=== PATIENT | male | born 1945 | race Caucasian/White ===

== ENCOUNTER 2017-12-31 00:43 | Emergency (ER) | payer MEDICARE, MEDICAID ==
[~2017-12-31] VITALS: Ht 182.9 cm; Wt 61.4 kg
[~2017-12-31 00:43] MED LIST: ATOR40TA PO; BACL10TA2 PO; CHOL2000 PO; DOCU100C41 PO; FLO0.4C PO; IPRA3AMP31 IH; MAG355OR18 PO; METO25TA6 PO; MULT-1179 PO; OMEP40CA37 PO; ONDA8TAB9 PO; PROC-8 PO; TRAM50TA2 PO; TRAZ-218 PO; TROL85CR11
[2017-12-31 00:44] VITALS: BP 112/68
[2017-12-31] MEDS ORDERED: mag hydrox/Alum hydrox/simeth 30ml oral suspension PO ONE (01:10)
[2017-12-31] MEDS ORDERED: LIDOcaine Viscous 15ml cup MM PRN (01:10)
[2017-12-31 01:20] LABS: BASOPHILS % (AUTO) 0.5 % (0-1); EOSINOPHILS # (AUTO) 0.3 X10'3 (0-0.9); EOSINOPHILS % (AUTO) 3.5 % (0-6); HEMATOCRIT 38.5 % (42.0-52.0); HEMOGLOBIN 12.5 g/dl (14.0-17.9); LYMPHOCYTES # (AUTO) 2.4 X10'3 (1.1-4.8); LYMPHOCYTES % (AUTO) 31.8 % (21-51); MEAN CORPUSCULAR HEMOGLOBIN 29.3 PG (27.0-31.0); MEAN CORPUSCULAR HGB CONC 32.4 % (33.0-36.5); MEAN CORPUSCULAR VOLUME 90.3 FL (78-98); MEAN PLATELET VOLUME 8.1 FL (7.4-10.4); MONOCYTES # (AUTO) 0.5 X10'3 (0-0.9); MONOCYTES % (AUTO) 7.3 % (2-12); NEUTROPHILS # (AUTO) 4.2 X10'3 (1.8-7.7); NEUTROPHILS % (AUTO) 56.9 % (42-75); PLATELET COUNT 199 X10'3 (140-440); RED BLOOD COUNT 4.26 X10'6 (4.70-6.10); RED CELL DISTRIBUTION WIDTH 13.9 % (11.5-14.5); WHITE BLOOD COUNT 7.4 X10'3 (4.5-11.0)
[2017-12-31 01:23] LABS: ALANINE AMINOTRANSFERASE 27 U/L (12-78); ALBUMIN 3.5 G/DL (3.4-5.0); ALKALINE PHOSPHATASE 115 IU/L (46-116); ANION GAP 6 (8-16); ASPARTATE AMINO TRANSFERASE 19 U/L (10-37); BILIRUBIN,TOTAL 0.4 MG/DL (0.1-1.0); BLOOD UREA NITROGEN 26 MG/DL (7-18); CALCIUM 9.9 MG/DL (8.5-10.1); CHLORIDE 103 MMOL/L (99-107); GLUCOSE 109 MG/DL (70-104); POTASSIUM 4.3 MMOL/L (3.5-5.1); SODIUM 139 MMOL/L (135-145); TOTAL CARBON DIOXIDE 29.8 MMOL/L (24-32); TOTAL PROTEIN 6.9 G/DL (6.4-8.2); eGFR 73 ML/MIN
[2017-12-31 01:33] LABS: PARTIAL THROMBOPLASTIN TIME 29 SECONDS (22-32); PROTHROMBIN TIME 10.5 SECONDS (9.0-12.0)
[2017-12-31] MEDS ORDERED: chlorproMAZINE 25mg tablet PO STA (02:36)
== END 2017-12-31 05:30 | disposition home or self-care (01) ==
LOC: ER 00:44
DX: K21.0 Gastro-esophageal reflux disease with esophagitis (principal); I48.91 Unspecified atrial fibrillation; I10 Essential (primary) hypertension; J44.9 Chronic obstructive pulmonary disease, unspecified; E11.9 Type 2 diabetes mellitus without complications; Z86.73 Personal history of transient ischemic attack (TIA), and cerebral infarction without residual deficits; Z79.899 Other long term (current) drug therapy
CPT/HCPCS: 36415; 71045; 80053; 84484; 85025; 85610; 85730; 93005; 99285; Q0161

== ENCOUNTER 2018-03-30 18:42 | Emergency (ER) | payer MEDICARE, MEDICAID ==
[~2018-03-30] VITALS: Ht 182.9 cm; Wt 61.0 kg
[2018-03-30 19:21] LABS: BASOPHILS % (AUTO) 0.5 % (0-1); EOSINOPHILS # (AUTO) 0.1 X10'3 (0-0.9); EOSINOPHILS % (AUTO) 2.2 % (0-6); HEMATOCRIT 35.3 % (42.0-52.0); HEMOGLOBIN 11.6 g/dl (14.0-17.9); LYMPHOCYTES # (AUTO) 1.5 X10'3 (1.1-4.8); LYMPHOCYTES % (AUTO) 25.9 % (21-51); MEAN CORPUSCULAR HEMOGLOBIN 30.1 PG (27.0-31.0); MEAN CORPUSCULAR HGB CONC 32.9 g/dL (33.0-36.5); MEAN CORPUSCULAR VOLUME 91.4 FL (78-98); MEAN PLATELET VOLUME 7.7 FL (7.4-10.4); MONOCYTES # (AUTO) 0.4 X10'3 (0-0.9); MONOCYTES % (AUTO) 7.5 % (2-12); NEUTROPHILS # (AUTO) 3.7 X10'3 (1.8-7.7); NEUTROPHILS % (AUTO) 63.9 % (42-75); PLATELET COUNT 163 X10'3 (140-440); RED BLOOD COUNT 3.86 X10'6 (4.70-6.10); RED CELL DISTRIBUTION WIDTH 15.4 % (11.5-14.5); WHITE BLOOD COUNT 5.8 X10'3 (4.5-11.0)
[2018-03-30 19:35] LABS: INR 1.1 INR; PARTIAL THROMBOPLASTIN TIME 28 SECONDS (22-32)
[2018-03-30 19:38] LABS: ALANINE AMINOTRANSFERASE 25 U/L (12-78); ALBUMIN 3.4 G/DL (3.4-5.0); ALBUMIN/GLOBULIN RATIO 1.1 (1.1-1.5); ALKALINE PHOSPHATASE 98 IU/L (46-116); ANION GAP 6 (8-16); ASPARTATE AMINO TRANSFERASE 18 U/L (10-37); BILIRUBIN,TOTAL 0.5 MG/DL (0.1-1.0); BLOOD UREA NITROGEN 24 MG/DL (7-18); BUN/CREATININE RATIO 25.8 (5.4-32.0); CHLORIDE 102 MMOL/L (99-107); CREATININE 0.93 MG/DL (0.60-1.10); GLUCOSE 90 MG/DL (70-104); POTASSIUM 4.4 MMOL/L (3.5-5.1); SODIUM 137 MMOL/L (135-145); TOTAL CARBON DIOXIDE 28.6 MMOL/L (24-32); TOTAL PROTEIN 6.4 G/DL (6.4-8.2); eGFR 79 ML/MIN
--- NOTE | 2018-03-30 19:48 | NUR ---
PT WITH STABLE VS AND HR NSR. REPORTS PAIN TO HIS UPPER "ESOPHAGUS, NON RADIATING. REPORTS HE STARTED HAVING THE PAIN LAST NIGHT AND TOOKK MOM AND MALLOX WITH NO RELIEF. PT HAS BASELINE ISSUES WITH GERD AND HX OF ESOPHAGEAL CANCER AND THOUGHT IT WAS D/T THIS. RTHE SYMPTOMS HAVE CONTINUED AND THAT IS WHY HE IS HERE. PT RESIDES AT [facility] SINCE SEPTEMBER (PT WAS EVACUATED FROM [facility] BY THE [facility] AND THEN BEGAN STAYING THERE). HE REPORTS NO RELIEF FOR MEDS GIVEN BY EMS. HE REQUESTS SOMETHING FORT THE PAIN AND WNDERS IF THE LIDOCAINE GI COCKTAIL MAY ALLEVIATE IT. PT IS POLITE AND COOPERARATIVE AND A&OX4.
[2018-03-30] MEDS ORDERED: dicyclomine 10 MG capsule PO ONE (20:15)
[2018-03-30] MEDS ORDERED: LIDOcaine Viscous 15ml cup PO ONE (20:15)
[2018-03-30] MEDS ORDERED: mag hydrox/Alum hydrox/simeth 30ml oral suspension PO ONE (20:15)
--- NOTE | 2018-03-30 20:25 | NUR ---
cristobal vs. dr. sandoval in to see pt and pt given gi cocktail.
--- NOTE | 2018-03-30 21:17 | NUR ---
clarification from dr. sandoval, he wants a 2 hr troponin, which would be now. pt reports the gi cocktail helped his pain and it is now 1 out of 10. pt with stable vs.
[2018-03-30] MEDS ORDERED: PANT-47 PO (22:22)
--- NOTE | 2018-03-30 23:00 | NUR ---
pt now dc ready. Stable vs. He reports to me now that aprox 5 min ago his "esophagus pain" returned and is a 7 out of 10. He is asking for something to help him with the pain before discharge.
[2018-03-30 23:01] VITALS: BP 153/93
[2018-03-30] MEDS ORDERED: famotidine/PF 10 mg/ml inj IV ONE (23:05)
--- NOTE | 2018-03-30 23:09 | NUR ---
dr sandoval ordering pepcid prior to dc.pt's bp 177/92
--- NOTE | 2018-03-30 23:32 | NUR ---
report called to navid richards at [facility]. pt just given pepcid. [facility] called for transport.
[2018-03-30] MEDS ORDERED: sucralfate 1gm/10ml UD suspension PO ONE (23:35)
[2018-03-30] MEDS ORDERED: fentaNYL/PF 50MCG/1 ML 2ML syringe IV ONE (23:35)
--- NOTE | 2018-03-30 23:37 | NUR ---
pt now reporteing "severe discomfort" in his epigastric area, dr. sandoval aware and ordering fentanyl and carafate.
== END 2018-03-31 00:15 | disposition home or self-care (01) ==
LOC: ER 18:42
DX: K21.9 Gastro-esophageal reflux disease without esophagitis (principal); I48.91 Unspecified atrial fibrillation; I10 Essential (primary) hypertension; J44.9 Chronic obstructive pulmonary disease, unspecified; E11.9 Type 2 diabetes mellitus without complications; F17.210 Nicotine dependence, cigarettes, uncomplicated; Z86.73 Personal history of transient ischemic attack (TIA), and cerebral infarction without residual deficits; Z79.899 Other long term (current) drug therapy
CPT/HCPCS: 36415; 71045; 80053; 84484; 85025; 85610; 85730; 93005; 96374; 96375; 99284; J3010; J3490

== ENCOUNTER 2018-05-06 01:54 | Emergency (ER) | payer MEDICARE, MEDICAID ==
[~2018-05-06] VITALS: Ht 182.9 cm; Wt 61.4 kg
[~2018-05-06 01:54] MED LIST changes: +PANT-47 PO
[2018-05-06 02:25] LABS: BASOPHILS % (AUTO) 0.5 % (0-1); EOSINOPHILS # (AUTO) 0.2 X10'3 (0-0.9); EOSINOPHILS % (AUTO) 2.5 % (0-6); HEMATOCRIT 36.2 % (42.0-52.0); HEMOGLOBIN 11.9 g/dl (14.0-17.9); LYMPHOCYTES # (AUTO) 1.4 X10'3 (1.1-4.8); LYMPHOCYTES % (AUTO) 22.6 % (21-51); MEAN CORPUSCULAR HEMOGLOBIN 29.7 PG (27.0-31.0); MEAN CORPUSCULAR HGB CONC 32.9 g/dL (33.0-36.5); MEAN CORPUSCULAR VOLUME 90.1 FL (78-98); MEAN PLATELET VOLUME 7.6 FL (7.4-10.4); MONOCYTES # (AUTO) 0.6 X10'3 (0-0.9); MONOCYTES % (AUTO) 9.9 % (2-12); NEUTROPHILS # (AUTO) 3.9 X10'3 (1.8-7.7); NEUTROPHILS % (AUTO) 64.5 % (42-75); PLATELET COUNT 189 X10'3 (140-440); RED BLOOD COUNT 4.02 X10'6 (4.70-6.10); RED CELL DISTRIBUTION WIDTH 14.7 % (11.5-14.5); WHITE BLOOD COUNT 6.1 X10'3 (4.5-11.0)
[2018-05-06] MEDS ORDERED: LIDOcaine Viscous 15ml cup PO ONE (02:25)
[2018-05-06] MEDS ORDERED: mag hydrox/Alum hydrox/simeth 30ml oral suspension PO ONE (02:25)
[2018-05-06] MEDS ORDERED: famotidine 20mg tablet PO ONE (02:25)
[2018-05-06] MEDS ORDERED: pantoprazole 40mg Tablet.DR PO ONE (02:25)
[2018-05-06 02:34] LABS: ALANINE AMINOTRANSFERASE 20 U/L (12-78); ALBUMIN 3.2 G/DL (3.4-5.0); ALKALINE PHOSPHATASE 107 IU/L (46-116); ANION GAP 5 (8-16); ASPARTATE AMINO TRANSFERASE 18 U/L (10-37); BILIRUBIN,TOTAL 0.3 MG/DL (0.1-1.0); BLOOD UREA NITROGEN 25 MG/DL (7-18); BUN/CREATININE RATIO 25.5 (5.4-32.0); CALCIUM 9.6 MG/DL (8.5-10.1); CHLORIDE 104 MMOL/L (99-107); CREATININE 0.98 MG/DL (0.60-1.10); GLUCOSE 129 MG/DL (70-104); SODIUM 138 MMOL/L (135-145); TOTAL CARBON DIOXIDE 28.9 MMOL/L (24-32); TOTAL PROTEIN 6.5 G/DL (6.4-8.2); eGFR 75 ML/MIN
[2018-05-06 02:48] LABS: PARTIAL THROMBOPLASTIN TIME 28 SECONDS (22-32); PROTHROMBIN TIME 10.5 SECONDS (9.0-12.0)
[2018-05-06 05:14] VITALS: BP 100/52
== END 2018-05-06 06:10 | disposition home or self-care (01) ==
LOC: ER 01:55
DX: K21.9 Gastro-esophageal reflux disease without esophagitis (principal); I48.91 Unspecified atrial fibrillation; I10 Essential (primary) hypertension; J44.9 Chronic obstructive pulmonary disease, unspecified; E11.9 Type 2 diabetes mellitus without complications; Z86.73 Personal history of transient ischemic attack (TIA), and cerebral infarction without residual deficits; Z87.891 Personal history of nicotine dependence; Z79.899 Other long term (current) drug therapy
CPT/HCPCS: 36415; 71045; 80053; 84484; 85025; 85610; 85730; 93005; 99284

== ENCOUNTER 2018-05-19 08:53 | Inpatient (IN) | payer MEDICARE, MEDICAID ==
[~2018-05-19] VITALS: Ht 182.9 cm; Wt 65.0 kg
[2018-05-19] MEDS ORDERED: aspirin 81mg tab.chew PO ONE (09:20)
[2018-05-19 09:42] LABS: BASOPHILS % (AUTO) 0.3 % (0-1); EOSINOPHILS % (AUTO) 0.4 % (0-6); HEMOGLOBIN 12.6 g/dl (14.0-17.9); LYMPHOCYTES # (AUTO) 0.7 X10'3 (1.1-4.8); LYMPHOCYTES % (AUTO) 5.6 % (21-51); MEAN CORPUSCULAR HGB CONC 31.6 g/dL (33.0-36.5); MEAN CORPUSCULAR VOLUME 91.8 FL (78-98); MEAN PLATELET VOLUME 7.2 FL (7.4-10.4); MONOCYTES % (AUTO) 7.8 % (2-12); NEUTROPHILS # (AUTO) 11.3 X10'3 (1.8-7.7); NEUTROPHILS % (AUTO) 85.9 % (42-75); PLATELET COUNT 212 X10'3 (140-440); RED BLOOD COUNT 4.35 X10'6 (4.70-6.10); RED CELL DISTRIBUTION WIDTH 14.2 % (11.5-14.5); WHITE BLOOD COUNT 13.2 X10'3 (4.5-11.0)
--- NOTE | 2018-05-19 09:44 | NUR ---
PER KRISTINE VERAS OK TO GIVE PT ICEWATER, GI COCKTAIL TO FOLLOW PER KRISTINE VERAS, GAVE PT GLASS OF WATER AND SAT UP GURNEY TO 45 DEGREES PT COMFORTABLE TO DRINK.
[2018-05-19] MEDS ORDERED: LIDOcaine Viscous 15ml cup PO ONE (09:45)
[2018-05-19] MEDS ORDERED: morphine 4 MG/ML inj SYRINge IV ONE (09:45)
[2018-05-19] MEDS ORDERED: normal saline 1000ML IV soln IVB ONE (09:45)
[2018-05-19] MEDS ORDERED: mag hydrox/Alum hydrox/simeth 30ml oral suspension PO ONE (09:45)
--- NOTE | 2018-05-19 09:49 | NUR ---
PT REPORTS 9/10 PAIN AND SOME NAUSEA, KRISTINE VERAS NOTIFIED, VERBAL ORDER FOR 4 MG IV ZOFRAN ONCE NOW RECEIVED.
[2018-05-19] MEDS ORDERED: ondansetron/PF 4mg/2ml inj IV ONE (09:50)
--- NOTE | 2018-05-19 09:56 | NUR ---
PT VS UPDATED AND STABLE, PT MEDICATED PER ORDERS.
[2018-05-19 09:58] LABS: ALANINE AMINOTRANSFERASE 21 U/L (12-78); ALBUMIN 3.5 G/DL (3.4-5.0); ALKALINE PHOSPHATASE 107 IU/L (46-116); ANION GAP 4 (8-16); ASPARTATE AMINO TRANSFERASE 17 U/L (10-37); BILIRUBIN,TOTAL 0.5 MG/DL (0.1-1.0); BLOOD UREA NITROGEN 21 MG/DL (7-18); BUN/CREATININE RATIO 23.1 (5.4-32.0); CALCIUM 10.1 MG/DL (8.5-10.1); CHLORIDE 103 MMOL/L (99-107); CREATININE 0.91 MG/DL (0.60-1.10); GLUCOSE 110 MG/DL (70-104); POTASSIUM 4.4 MMOL/L (3.5-5.1); SODIUM 139 MMOL/L (135-145); TOTAL CARBON DIOXIDE 32.4 MMOL/L (24-32); TOTAL PROTEIN 7.1 G/DL (6.4-8.2); eGFR 81 ML/MIN
[2018-05-19 10:05] LABS: MAGNESIUM 2.2 MG/DL (1.5-2.4)
--- NOTE | 2018-05-19 10:22 | NUR ---
PT VITALS MONITORED AND STABLE. LS CLEAR AND O2 SAT 100% 2/L MIN OXYGEN. SERGIO VERAS INFORMED AND REQUESTED TO TAKE OFF OXYGEN TO DETERMINE RA O2 SAT.
[2018-05-19] MEDS ORDERED: magnesium hydroxide 30ml (MOM) UD suspension PO PRN (11:30)
[2018-05-19] MEDS ORDERED: magnesium Cl slow-release 64mg tablet PO PRN (11:30)
[2018-05-19] MEDS ORDERED: magnesium 2GM in 50ml NS 50 ML IV PRN (11:30)
[2018-05-19] MEDS ORDERED: potassium Cl 20 mEq SR tablet PO PRN ×2 (11:30)
[2018-05-19] MEDS ORDERED: ondansetron/PF 4mg/2ml inj IV PRN (11:30)
[2018-05-19] MEDS ORDERED: morphine 4 MG/ML inj SYRINge IV PRN (11:30)
[2018-05-19] MEDS ORDERED: acetaminophen 325mg tablet PO PRN ×2 (11:30)
[2018-05-19] MEDS ORDERED: magnesium 4gm in 100ml NS 100 ML IV PRN (11:30)
[2018-05-19] MEDS ORDERED: potassium Cl 40MEQ/NS 500ml 500 ML IV PRN ×2 (11:30)
[2018-05-19] MEDS ORDERED: HYDROcodone/acetaminophen 5mg/325mg tablet PO PRN (11:30)
[2018-05-19] MEDS: normal saline 1000ml 1,000 ML IV SCH (12:16)
--- NOTE | 2018-05-19 12:38 | NUR ---
PT ASKED IF HE WAS DIABETIC AND HE DENIED IT. BG 81.
--- NOTE | 2018-05-19 12:39 | NUR ---
NATE CALLED, TELEPHONE ORDER TO START 2 GRAM IV ROCEPHEN DOSE TODAY NOW ONCE.
[2018-05-19] MEDS ORDERED: CefTRIAXone 2gm/D5W 50ml 50 ML IV ONE (12:40)
[2018-05-19] MEDS ORDERED: POTA10TA15 PO (13:21)
[2018-05-19] MEDS ORDERED: FINA5TAB11 PO (13:21)
[2018-05-19] MEDS ORDERED: MIRT15TA PO (13:21)
[2018-05-19] MEDS ORDERED: NITR0.4T48 SL (13:21)
[2018-05-19] MEDS ORDERED: LACT1CAP65 PO (13:21)
[2018-05-19] MEDS ORDERED: SUCR1TAB PO (13:21)
[2018-05-19] MEDS ORDERED: HYDR-3964 PO (13:21)
[2018-05-19] MEDS ORDERED: SERT100T10 PO (13:21)
--- NOTE | 2018-05-19 13:41 | NUR ---
PT STATING THE ROOM WAS LOUD. REQUESTED EVS TO MOVE CART FROM OUTSIDE THE ROOM TO AROUND THE [place] TO DECREASE NOISE LEVEL. ASKED MANAGER CLINICAL ABOUT ROOM AVAILABILITY.
[2018-05-19] MEDS: mag hydrox/Alum hydrox/simeth 30ml oral suspension PO PRN ×2 (13:55→19:55)
[2018-05-19] MEDS: HYDROcodone/acetaminophen 10/325mg tab PO PRN ×2 (13:55→22:59)
--- NOTE | 2018-05-19 14:24 | NUR ---
PT MEDICATED FOR PAIN PER ORDERS. IV REDRESSED. PT TRANSFERED TO HOSPITAL BED, GIVEN MEAL TRAY AND ONLY WANTED THE DESSERT AND ICED TEA. PT GIVEN EAR PLUGS AND EYE MASK DUE TO PT COMPLAINT OF NOISE LEVEL.
--- NOTE | 2018-05-19 15:26 | NUR ---
received report from Zenobia Holloway from the ER
[2018-05-19 16:05] VITALS: BP 150/73
--- NOTE | 2018-05-19 17:06 | NUR ---
Patients bottom is reddened but blanchable, patient refused an Optifoam to be placed over his ramsey coccyx, will continue to monitor
[2018-05-19 18:00] VITALS: BP 150/73
--- NOTE | 2018-05-19 18:26 | NUR ---
PATIENT REPORT RECEIVED FROM HAKAN VILLA.
--- NOTE | 2018-05-19 18:28 | NUR ---
Problems reprioritized. Patient report given, questions answered & plan of care reviewed with Annemarie VILLA.
[2018-05-19] MEDS: heparin, porcine 5000 units/ml vial SQ SCH (19:55)
[2018-05-19] MEDS ORDERED: temazepam 15mg capsule PO PRN (21:00)
--- NOTE | 2018-05-19 21:20 | NUR ---
PAGER ID: [phone] MESSAGE: PATIENT 3A: YBARRA, SEN: HAVING A HARD TIME URINATING. TAKES FLOMAX BID. MED REC NEEDS TO BE ADDRESSED. THANK YOU. AMANDA [phone]
[2018-05-19] MEDS ORDERED: mag hydrox/Alum hydrox/simeth 30ml oral suspension PO PRN (21:30)
[2018-05-19] MEDS ORDERED: tamsulosin 0.4mg capsule PO ONE (21:35)
[2018-05-19 22:00] VITALS: BP 176/92
[2018-05-20] MEDS: mag hydrox/Alum hydrox/simeth 30ml oral suspension PO PRN ×4 (00:04→15:06)
[2018-05-20] MEDS: normal saline 1000ml 1,000 ML IV SCH ×2 (02:15→09:27)
--- NOTE | 2018-05-20 02:47 | NUR ---
BROOKLYN TANG RN FROM [facility] CALLED TO CHECK UP ON PATIENT. PATIENT'S FAMILY MEMBERS WERE WONDERING HOW HE WAS DOING.
[2018-05-20 06:00] VITALS: BP 149/75
--- NOTE | 2018-05-20 06:06 | NUR ---
PAGER ID: [phone] MESSAGE: PATIENT [id number]: SEN YBARRA: WOULD LIKE FLOMAX NOW. TAKES IT BID. THANK YOU [id number]
--- NOTE | 2018-05-20 06:48 | NUR ---
PATIENT REPORT GIVEN TO TEDDY VILLA.
[2018-05-20] MEDS ORDERED: tamsulosin 0.4mg capsule PO SCH ×2 (07:30→20:00)
[2018-05-20] MEDS ORDERED: pantoprazole 40mg Tablet.DR PO SCH (07:30)
[2018-05-20 07:40] LABS: BASOPHILS % (AUTO) 0.3 % (0-1); EOSINOPHILS # (AUTO) 0.1 X10'3 (0-0.9); EOSINOPHILS % (AUTO) 1.3 % (0-6); HEMATOCRIT 34.9 % (42.0-52.0); HEMOGLOBIN 11.6 g/dl (14.0-17.9); LYMPHOCYTES # (AUTO) 1.4 X10'3 (1.1-4.8); MEAN CORPUSCULAR HEMOGLOBIN 30.2 PG (27.0-31.0); MEAN CORPUSCULAR HGB CONC 33.2 g/dL (33.0-36.5); MEAN CORPUSCULAR VOLUME 90.9 FL (78-98); MEAN PLATELET VOLUME 7.5 FL (7.4-10.4); MONOCYTES # (AUTO) 0.6 X10'3 (0-0.9); NEUTROPHILS # (AUTO) 4.5 X10'3 (1.8-7.7); NEUTROPHILS % (AUTO) 68.4 % (42-75); PLATELET COUNT 173 X10'3 (140-440); RED BLOOD COUNT 3.84 X10'6 (4.70-6.10); RED CELL DISTRIBUTION WIDTH 14.1 % (11.5-14.5); WHITE BLOOD COUNT 6.6 X10'3 (4.5-11.0)
[2018-05-20] MEDS ORDERED: K and/or MAG REPLACEMENT MC SCH (08:00)
[2018-05-20] MEDS ORDERED: multivitamins, therapeutics tablet PO SCH (08:00)
[2018-05-20] MEDS ORDERED: metoprolol tartrate 25mg tablet PO SCH (08:00)
[2018-05-20] MEDS ORDERED: CefTRIAXone 2gm/D5W 50ml 50 ML IV SCH (08:00)
[2018-05-20 08:09] LABS: ALANINE AMINOTRANSFERASE 18 U/L (12-78); ALBUMIN 2.9 G/DL (3.4-5.0); ALBUMIN/GLOBULIN RATIO 0.9 (1.1-1.5); ALKALINE PHOSPHATASE 85 IU/L (46-116); ANION GAP 5 (8-16); ASPARTATE AMINO TRANSFERASE 16 U/L (10-37); BILIRUBIN,TOTAL 0.3 MG/DL (0.1-1.0); BLOOD UREA NITROGEN 17 MG/DL (7-18); BUN/CREATININE RATIO 20.2 (5.4-32.0); CALCIUM 9.7 MG/DL (8.5-10.1); CHLORIDE 105 MMOL/L (99-107); CREATININE 0.84 MG/DL (0.60-1.10); GLUCOSE 90 MG/DL (70-104); MAGNESIUM 2.3 MG/DL (1.5-2.4); POTASSIUM 4.3 MMOL/L (3.5-5.1); SODIUM 138 MMOL/L (135-145); TOTAL PROTEIN 6.1 G/DL (6.4-8.2); eGFR 89 ML/MIN
--- NOTE | 2018-05-20 08:53 | NUR ---
PAGER ID: [phone] MESSAGE: RE: Room 4023A Royal Alexis Please address med rec pt very anxious because he is not getting all his normal medications. Only part of the med rec was addressed.
[2018-05-20] MEDS: heparin, porcine 5000 units/ml vial SQ SCH (09:05)
[2018-05-20] MEDS ORDERED: potassium chloride 10mEq ER tablet PO SCH (10:00)
[2018-05-20 10:43] VITALS: BP 131/71
[2018-05-20] MEDS ORDERED: sucralfate 1 gm tablet PO SCH (14:00)
--- NOTE | 2018-05-20 15:35 | NUR ---
Report called to [facility], spoke with Marion VILLA.
--- NOTE | 2018-05-20 15:37 | NUR ---
Pt picked up by [facility]. Pt left in stable condition with belongings. Packet given to milk truck driver.
[2018-05-20] MEDS ORDERED: finasteride 5mg tablet PO SCH (21:00)
[2018-05-20] MEDS ORDERED: traZODone 50mg tablet PO SCH (21:00)
[2018-05-20] MEDS ORDERED: sertraline 50mg tablet PO SCH (21:00)
[2018-05-20] MEDS ORDERED: mirtazapine 15mg tablet PO SCH (21:00)
== END 2018-05-20 15:40 | DRG 948 ==
LOC: ER 08:53 → ED HOLD 11:28 → ORTHO 4S 15:50
PROVIDERS: ADMIT Internal Medicine; ATTEND Internal Medicine
DX: G89.3 Neoplasm related pain (acute) (chronic) (principal); E44.0 Moderate protein-calorie malnutrition; Z68.1 Body mass index [BMI] 19.9 or less, adult; C15.9 Malignant neoplasm of esophagus, unspecified; R62.7 Adult failure to thrive; R07.89 Other chest pain; E11.9 Type 2 diabetes mellitus without complications; I10 Essential (primary) hypertension; I48.91 Unspecified atrial fibrillation; J44.9 Chronic obstructive pulmonary disease, unspecified; K21.9 Gastro-esophageal reflux disease without esophagitis; Z85.841 Personal history of malignant neoplasm of brain; Z86.73 Personal history of transient ischemic attack (TIA), and cerebral infarction without residual deficits
CPT/HCPCS: 36415; 71045; 71250; 74150; 80053; 82948; 83605; 83735; 83880; 84145; 84484; 85025; 87040; 87070; 93005; 96361; 96374; 96375; 99285; G0378; J0696; J1644; J2270; J2405; J7030

== ENCOUNTER 2018-05-24 23:54 | Emergency (ER) | payer MEDICARE, MEDICAID ==
[~2018-05-24] VITALS: Ht 182.9 cm; Wt 59.1 kg
[~2018-05-24 23:54] MED LIST changes: -BACL10TA2 PO; -DOCU100C41 PO; +FINA5TAB11 PO; -IPRA3AMP31 IH; +LACT1CAP65 PO; +MIRT15TA PO; +NITR0.4T48 SL; -OMEP40CA37 PO; -ONDA8TAB9 PO; -PANT-47 PO; +POTA10TA15 PO; -PROC-8 PO; +SERT100T10 PO; +SUCR1TAB PO; -TRAM50TA2 PO; -TROL85CR11
[2018-05-25] MEDS ORDERED: diphenhydrAMINE 50 mg/ml inj IV ONE (00:30)
[2018-05-25] MEDS ORDERED: proCHLORperazine 10 MG/2 ml inj IV ONE (00:30)
[2018-05-25] MEDS: labetalol 20mg/4ml (5mg/ml) syringe IV PRN ×4 (01:22→03:04)
[2018-05-25] MEDS ORDERED: morphine 4 MG/ML inj SYRINge IV ONE (02:05)
[2018-05-25 03:04] LABS: BASOPHILS % (AUTO) 0.2 % (0-1); EOSINOPHILS % (AUTO) 0.1 % (0-6); HEMATOCRIT 37.6 % (42.0-52.0); HEMOGLOBIN 12.3 g/dl (14.0-17.9); LYMPHOCYTES # (AUTO) 0.9 X10'3 (1.1-4.8); MEAN CORPUSCULAR HEMOGLOBIN 29.3 PG (27.0-31.0); MEAN CORPUSCULAR HGB CONC 32.8 g/dL (33.0-36.5); MEAN CORPUSCULAR VOLUME 89.3 FL (78-98); MEAN PLATELET VOLUME 7.6 FL (7.4-10.4); MONOCYTES # (AUTO) 0.9 X10'3 (0-0.9); MONOCYTES % (AUTO) 6.6 % (2-12); NEUTROPHILS # (AUTO) 11.3 X10'3 (1.8-7.7); NEUTROPHILS % (AUTO) 86.1 % (42-75); PLATELET COUNT 241 X10'3 (140-440); RED CELL DISTRIBUTION WIDTH 14.1 % (11.5-14.5); WHITE BLOOD COUNT 13.1 X10'3 (4.5-11.0)
[2018-05-25 03:13] LABS: INR 1.1 INR; PARTIAL THROMBOPLASTIN TIME 28 SECONDS (22-32); PROTHROMBIN TIME 10.8 SECONDS (9.0-12.0)
[2018-05-25 03:17] LABS: ALANINE AMINOTRANSFERASE 21 U/L (12-78); ALBUMIN 3.5 G/DL (3.4-5.0); ALKALINE PHOSPHATASE 94 IU/L (46-116); ANION GAP 10 (8-16); ASPARTATE AMINO TRANSFERASE 21 U/L (10-37); BILIRUBIN,TOTAL 0.5 MG/DL (0.1-1.0); BLOOD UREA NITROGEN 18 MG/DL (7-18); CALCIUM 10.2 MG/DL (8.5-10.1); CHLORIDE 97 MMOL/L (99-107); CREATININE 0.72 MG/DL (0.60-1.10); GLUCOSE 143 MG/DL (70-104); MAGNESIUM 1.6 MG/DL (1.5-2.4); POTASSIUM 3.5 MMOL/L (3.5-5.1); SODIUM 136 MMOL/L (135-145); TOTAL PROTEIN 6.9 G/DL (6.4-8.2); eGFR > 90 ML/MIN
[2018-05-25 03:30] VITALS: BP 142/65
== END 2018-05-25 03:32 | disposition short-term general hospital (02) ==
LOC: ER 23:54
DX: I62.9 Nontraumatic intracranial hemorrhage, unspecified (principal); I48.91 Unspecified atrial fibrillation; I10 Essential (primary) hypertension; J44.9 Chronic obstructive pulmonary disease, unspecified; K21.9 Gastro-esophageal reflux disease without esophagitis; E11.9 Type 2 diabetes mellitus without complications; F32.9 Major depressive disorder, single episode, unspecified; Z79.899 Other long term (current) drug therapy; Z86.73 Personal history of transient ischemic attack (TIA), and cerebral infarction without residual deficits
CPT/HCPCS: 36415; 70450; 80053; 83735; 85025; 85610; 85730; 96374; 96375; 96376; 99291; J0780; J1200; J2270; J3490